=== PATIENT | male | born 1975 | race Caucasian/White ===

== ENCOUNTER 2020-11-30 12:40 | Emergency (ER) | payer OTHER ==
[2020-11-30] MEDS ORDERED: CEPHALEXIN500 M1 PO (15:53)
[2020-11-30] MEDS ORDERED: BACTRIM DS TAB1 EACH PO (15:53)
[2020-11-30] MEDS ORDERED: ZOFRAN4 M1 PO (15:53)
== END 2020-11-30 16:12 | disposition home or self-care (01) ==
LOC: FER 12:40
DX: L02.213 Cutaneous abscess of chest wall (principal); L03.313 Cellulitis of chest wall; I10 Essential (primary) hypertension; F17.210 Nicotine dependence, cigarettes, uncomplicated; Z23 Encounter for immunization; Z90.49 Acquired absence of other specified parts of digestive tract; Z91.013 Allergy to seafood
CPT/HCPCS: 87070; 87077; 87186; 87205; 90471; 90715

== ENCOUNTER 2020-12-02 13:34 | Inpatient (IN) | payer OTHER ==
[~2020-12-02 13:34] MED LIST: BACTRIM DS TAB1 EACH PO; CEPHALEXIN500 M1 PO; ZOFRAN4 M1 PO
[2020-12-02 14:12] LABS: BASOPHIL 0.4 % (0-2); EOSINOPHIL 3.6 % (0-5); HCT 43.5 % (42.0-52.0); HGB 14.3 g/dl (13.2-18.0); LYMPHOCYTE 16.4 % (15-48); MCH 30.3 pg (25.0-31.0); MCHC 32.9 g/dL (32.0-36.0); MCV 92.2 fL (78.0-100.0); MONOCYTE 8.9 % (0-12); MPV 11.4 fL (6.0-9.5); NEUTROPHIL 70.1 % (41-80); NRBC 0; PLT 222 K/uL (150-400); RBC 4.72 M/uL (4.70-6.00); WBC 14.5 K/uL (4.0-10.5)
[2020-12-02 14:36] LABS: ALBUMIN 3.4 g/dL (3.4-5.0); BILIRUBIN - TOTAL 0.2 mg/dL (0.2-1.0); BUN/CREAT RATIO (CALC) 15.9 RATIO; CREATININE 1.07 mg/dL (0.67-1.17); GLOBULIN (CALCULATION) 4.3 g/dL; TOTAL PROTEIN 7.7 g/dL (6.4-8.2)
[2020-12-02 14:41] LABS: LACTIC ACID 0.9 mmol/L (0.4-1.9)
[2020-12-03 04:32] LABS: BASOPHIL 0.4 % (0-2); EOSINOPHIL 5.5 % (0-5); HGB 13.3 g/dl (13.2-18.0); LYMPHOCYTE 23.5 % (15-48); MCH 29.9 pg (25.0-31.0); MCHC 32.4 g/dL (32.0-36.0); MCV 92.1 fL (78.0-100.0); MONOCYTE 9.9 % (0-12); MPV 11.3 fL (6.0-9.5); NEUTROPHIL 60.3 % (41-80); NRBC 0; PLT 211 K/uL (150-400); RBC 4.45 M/uL (4.70-6.00); WBC 11.3 K/uL (4.0-10.5)
[2020-12-03 04:50] LABS: BUN/CREAT RATIO (CALC) 11.9 RATIO; CREATININE 1.18 mg/dL (0.67-1.17); POTASSIUM 5.1 mmol/L (3.5-5.1)
[2020-12-04 05:36] LABS: EOSINOPHIL 9.1 % (0-5); HCT 40.4 % (42.0-52.0); HGB 13.3 g/dl (13.2-18.0); LYMPHOCYTE 30.1 % (15-48); MCHC 32.9 g/dL (32.0-36.0); MCV 91.2 fL (78.0-100.0); MONOCYTE 7.8 % (0-12); MPV 11.1 fL (6.0-9.5); NEUTROPHIL 51.7 % (41-80); NRBC 0; PLT 231 K/uL (150-400); RBC 4.43 M/uL (4.70-6.00); RDW 12.6 % (11.5-14.0); WBC 6.1 K/uL (4.0-10.5)
[2020-12-04 05:57] LABS: BUN/CREAT RATIO (CALC) 14.9 RATIO; CREATININE 0.94 mg/dL (0.67-1.17); POTASSIUM 4.4 mmol/L (3.5-5.1)
[2020-12-04] MEDS ORDERED: IBUPROFEN400 MG PO (08:02)
[2020-12-04] MEDS ORDERED: ONDANSETRON ODT4 MG PO (08:02)
[2020-12-04] MEDS ORDERED: CLEOCIN300 MG PO (08:02)
[2020-12-04] MEDS ORDERED: OXYCODONE-ACET1 EAC1 PO (08:02)
== END 2020-12-04 09:27 | disposition home or self-care (01) | DRG 580 ==
LOC: FER 13:34 → FMS 15:57
PROVIDERS: Emergency Medicine; ADMIT Allergy & Immunology Allergy
PROC: 0J960ZZ Drainage of Chest Subcutaneous Tissue and Fascia, Open Approach (ICD-10-PCS; principal; 2020-12-02)
DX: L02.213 Cutaneous abscess of chest wall (principal); Z16.29 Resistance to other single specified antibiotic; L03.313 Cellulitis of chest wall; Z20.822 Contact with and (suspected) exposure to COVID-19; F17.210 Nicotine dependence, cigarettes, uncomplicated; M79.89 Other specified soft tissue disorders; Z86.14 Personal history of Methicillin resistant Staphylococcus aureus infection; G89.29 Other chronic pain; B95.4 Other streptococcus as the cause of diseases classified elsewhere; B95.62 Methicillin resistant Staphylococcus aureus infection as the cause of diseases classified elsewhere; I10 Essential (primary) hypertension; R00.0 Tachycardia, unspecified; Z91.013 Allergy to seafood
CPT/HCPCS: 36415; 80048; 80053; 82150; 83605; 84145; 84484; 85025; 86060; 87040; 87070; 87077; 87186; 87205; 90471; 90715; J1170; J2001; J2270; J2405; J3370; J7030; J7050; U0002